=== PATIENT | female | born 1970 | race Caucasian/White ===

== ENCOUNTER 2017-03-06 20:02 | Emergency (ER) | payer MEDICAID ==
[2017-03-06] MEDS ORDERED: IPRATROPIUM/ALBUTEROL (0.5MG/3MG) NEB INH ONE (20:16)
--- NOTE | 2017-03-06 20:20 | Emergency Department Record ---
History of Present Illness - General Chief Complaint: Cough Stated Complaint: COUGH/BODY ACHES Time Seen by Provider: 03/06/17 20:04 Source: Patient Mode of Arrival: Ambulatory Limitations: No limitations - History of Present Illness Initial Comments: 46 yo female presents to ED with a CC of cough and congestion symptoms for the past 2 weeks. Patient reports that she took 5-days of Levaquin at that time without significant improvement. Patient was seen in [facility] several days ago, given duoneb, prednisone, and tessalon perles without improvement. Patient does report a history of pneumonia previously and is a current smoker. Patient also reports history of DM and RA that she does not currently take immunosuppressant medications for. MD Complaint: Cough Onset/Timin -: Week(s) Severity: Moderate Quality: Aching Consistency: Constant Improves With: Nothing Worsens With: Nothing Associated Symptoms: Denies other symptoms Treatments Prior to Arrival: Antibiotics - Related Data Previous Rx's Medication Instructions Recorded Azithromycin [Zithromax] 250 mg PO DAILY #8 tablet 03/06/17 Allergies Allergy/AdvReac Type Severity Reaction Status Date / Time bupropion HCl [From Zyban] Allergy Severe HIVES Verified 03/06/17 20:13 morphine Allergy Severe ALTERED Verified 03/06/17 20:13 MENTAL STATUS Penicillins Allergy Severe HIVES Verified 03/06/17 20:13 Sulfa (Sulfonamide Allergy Severe ANAPHYLAXIS Verified 03/06/17 20:13 Antibiotics) codeine Allergy Mild itch and Verified 03/06/17 20:13 stomach issues Travel Screening - Travel/Exposure Within Last 30 Days Have you traveled within the last 30 days?: No - Travel/Exposure Within Last Year Have you traveled outside the [place] in the last year?: No - Additonal Travel Details Have you been exposed to anyone with a communicable illness?: No Review of Systems Constitutional: Denies: Chills, Fever, Malaise, Night sweats Eyes: Denies: Eye discharge, Eye pain ENT: Reports: Congestion. Denies: Ear pain, Epistaxis Respiratory: Reports: Cough, Dyspnea Cardiovascular: Denies: Chest pain, Dyspnea on exertion Endocrine: Denies: Fatigue, Heat or cold intolerance Gastrointestinal: Denies: Abdominal pain, Nausea, Vomiting Genitourinary: Denies: Incontinence, Retention Musculoskeletal: Denies: Arthralgia, Back pain, Gout, Joint swelling Skin: Denies: Bruising, Change in color Neurological: Denies: Abnormal gait, Confusion, Headache, Seizure Psychiatric: Denies: Anxiety Hematological/Lymphatic: Denies: Anemia, Blood Clots Past Medical History - SOCIAL HISTORY Smoking Status: Current every day smoker Alcohol Use: None Drug Use: None - RESPIRATORY Hx Respiratory Disorders: No - CARDIOVASCULAR Hx Cardio Disorders: Yes Hx Deep Vein Thrombosis: Yes - NEURO Hx Neuro Disorders: No - GI Hx GI Disorders: No - Hx Genitourinary Disorders: No - ENDOCRINE Hx Endocrine Disorders: Yes Hx Diabetes: Yes - MUSCULOSKELETAL Hx Musculoskeletal Disorders: Yes Hx Arthritis: Yes (RA) Comment:: DJD - PSYCH Hx Psych Problems: Yes Hx Depression: Yes - HEMATOLOGY/ONCOLOGY Hx Hematology/Oncology Disorders: No Family Medical History Any Significant Family History?: Yes Hx Heart Disease: Father Hx Stroke: Father Physical Exam - General General Appearance: Alert, Oriented x3, Cooperative, No acute distress Limitations: No limitations - Head Head exam: Atraumatic, Normocephalic, Normal inspection Head exam detail: negative: Abrasion, Contusion, Rubi's sign, General tenderness, Hematoma, Laceration - Eye Eye exam: Normal appearance. negative: Conjunctival injection, Periorbital swelling, Periorbital tenderness, Scleral icterus - ENT Ear exam: negative: Auricular hematoma, Auricular trauma Nasal Exam: negative: Active bleeding, Discharge, Dried blood, Foreign body Mouth exam: negative: Drooling, Laceration, Tongue elevation - Neck Neck exam: Normal inspection. negative: Meningismus, Tenderness - Respiratory Respiratory exam: Normal lung sounds bilaterally. negative: Rales, Respiratory distress, Rhonchi, Stridor - Cardiovascular Cardiovascular Exam: Regular rate, Normal rhythm, Normal heart sounds - GI/Abdominal GI/Abdominal exam: Soft. negative: Rebound, Rigid, Tenderness - Rectal Rectal exam: Deferred - exam: Deferred - Extremities Extremities exam: Normal inspection. negative: Calf tenderness, Pedal edema, Tenderness - Back Back exam: Denies: CVA tenderness (R), CVA tenderness (L) - Neurological Neurological exam: Alert, Normal gait, Oriented X3 - Psychiatric Psychiatric exam: Normal affect, Normal mood - Skin Skin exam: Normal color. negative: Abrasion Type of lesion: negative: abrasion Course Vital Signs 03/06/17 20:03 Temperature 97.9 F Pulse Rate 84 Respiratory 18 Rate Blood Pressure 112/84 Pulse Ox 98 - Reevaluation(s) Reevaluation #1: 03/06/17 20:31 EKG: NSR 72 Normal axis, normal intervals No acute ST-T wave changes. Influenza negative Reevaluation #2: 03/06/17 21:13 CXR: No acute process Patient was updated on all results, reports improvement in her symptoms and appears stable for discharge on Zithromax for probable bronchitis. Patient was instructed to continue Prednisone until gone, continue Tessalon as directed. Disposition Disposition: Discharge Clinical Impression: Bronchitis Disposition: Home, Self-Care Condition: (2) Stable Instructions: Acute Bronchitis (ED) Additional Instructions: Return to ED if your symptoms worsen or if you have any concerns. Zithromax as directed. Follow-up with your family doctor in 3-5 days as directed. Prescriptions: Azithromycin [Zithromax] 250 mg PO DAILY #8 tablet Forms: Patient Portal Access Time of Disposition: 21:17 Quality - Quality Measures Quality Measures: N/A - Blood Pressure Screening Does Patient Have Any of the Following: No Blood Pressure Classification: Pre-Hypertensive BP Reading Systolic Measurement: 112 Diastolic Measurement: 84 Screening for High Blood Pressure: < Pre-Hypertensive BP, F/U Documented > [ G8950] Pre-Hypertensive Follow-up Interventions: Referral to alternative/primary care provider.
[2017-03-06 20:28] LABS: INFLUENZA A NEGATIVE (NEGATIVE); INFLUENZA B NEGATIVE (NEGATIVE)
--- NOTE | 2017-03-08 15:53 | RADIOLOGY REPORT ---
DATE: 03/06/2017 at 2056. EXAM: CHEST, TWO VIEWS. HISTORY: Cough and chest pain. TECHNIQUE: Upright PA and lateral views of the chest. COMPARISON: Two-view chest radiographic examination dated 03/02/2017. FINDINGS: The heart is normal in size, and the pulmonary vasculature is nondilated. The lungs and pleural spaces remain clear. No displaced rib fracture. Degenerative changes of the visualized spine and shoulder girdle is redemonstrated. Surgical anchors again noted in the proximal humeri. IMPRESSION: NO EVIDENCE OF ACUTE CARDIOPULMONARY DISEASE, UNCHANGED SINCE 03/02/2017. JOB NUMBER: [id number] [facility]
== END 2017-03-06 21:22 | disposition home or self-care (01) ==
LOC: ER 20:02
DX: J20.9 Acute bronchitis, unspecified (principal); R07.9 Chest pain, unspecified; F17.210 Nicotine dependence, cigarettes, uncomplicated; E11.9 Type 2 diabetes mellitus without complications; M06.9 Rheumatoid arthritis, unspecified
CPT/HCPCS: 71020; 87400; 93005; 93010; 94640; 99284

== ENCOUNTER 2017-07-22 13:39 | Emergency (ER) | payer MEDICAID ==
--- NOTE | 2017-07-22 13:55 | Emergency Department Record ---
History of Present Illness - General Chief Complaint: Chest Pain Stated Complaint: CHEST PAIN Time Seen by Provider: 07/22/17 13:51 Source: Patient Mode of Arrival: Ambulatory Limitations: No limitations - History of Present Illness Initial Comments: 47 yo female presents with chest pain that is both sharp and squeezing in the mid left chest. It radiates to the back. It started at about 8 pm last night. The pain is a squeezing tightness that becomes sharp. The pain intensity comes and goes. She feels nauseated with the pain. She reports she did have a heart cath about 4 years ago at [facility]. She also had a Left UE DVT last december that was treated with Xarelto. She had had L shoulder surgery the preceding August. No leg pain or edema. No calf pain. No upper extremity pain or swelling. She has DM, HTN, and is a smoker. She has a strong family history of CAD, aneurysms. She is one of 16 children. Father at age 51 with AMI, brother at 48 yo thought to be a dissection. She has at least 2 siblings with aneurysms. MD Complaint: Chest pain -: Days(s) (1) Onset: Other Pain Location: Left chest Pain Radiation: Back Severity: Moderate Quality: Sharp, Tightness Consistency: Intermittent Improves With: Nothing Worsens With: Nothing Context: Other Anginal Symptoms: Diaphoresis, Dyspnea, Nausea Other Symptoms: Other Treatments Prior to Arrival: None - Related Data Home Medications Medication Instructions Recorded Confirmed Last Taken Dapagliflozin Propanediol [Farxiga] 10 g PO DAILY 07/22/17 07/22/17 Unknown Oxycodone HCl [Oxycodone HCl] 20 mg PO DAILY 07/22/17 07/22/17 Unknown Allergies Allergy/AdvReac Type Severity Reaction Status Date / Time bupropion HCl [From Zyban] Allergy Severe HIVES Unverified 06/29/17 09:09 morphine Allergy Severe ALTERED Unverified 06/29/17 09:09 MENTAL STATUS Penicillins Allergy Severe HIVES Unverified 06/29/17 09:09 Sulfa (Sulfonamide Allergy Severe ANAPHYLAXIS Unverified 06/29/17 09:09 Antibiotics) codeine Allergy Mild itch and Unverified 06/29/17 09:09 stomach issues sulfamethoxazole Allergy Unverified 06/29/17 09:09 [From Bactrim] trimethoprim [From Bactrim] Allergy Unverified 06/29/17 09:09 Review of Systems Constitutional: Denies: Chills, Fever, Malaise, Weakness Eyes: Denies: Eye discharge, Eye pain ENT: Denies: Congestion, Dental pain, Throat pain Respiratory: Reports: Dyspnea. Denies: Cough, Hemoptysis, Stridor, Wheezes Cardiovascular: Reports: Chest pain. Denies: Dyspnea on exertion, Edema, Palpitations, Syncope Endocrine: Reports: Fatigue (one month) Gastrointestinal: Reports: Nausea. Denies: Abdominal pain, Diarrhea, Vomiting Genitourinary: Denies: Dysuria, Urgency Musculoskeletal: Reports: Back pain. Denies: Arthralgia, Joint swelling, Myalgia, Neck pain Skin: Denies: Bruising, Change in color, Rash Neurological: Denies: Confusion, Headache Psychiatric: Denies: Anxiety, Depression Hematological/Lymphatic: Denies: Blood Clots, Easy bleeding, Easy bruising, Swollen glands Past Medical History - SOCIAL HISTORY Smoking Status: Current every day smoker Drug Use: None - RESPIRATORY Hx Respiratory Disorders: No - CARDIOVASCULAR Hx Cardio Disorders: Yes Hx Deep Vein Thrombosis: Yes - NEURO Hx Neuro Disorders: No - GI Hx GI Disorders: No - Hx Genitourinary Disorders: No - ENDOCRINE Hx Endocrine Disorders: Yes Hx Diabetes: Yes - MUSCULOSKELETAL Hx Musculoskeletal Disorders: Yes Hx Arthritis: Yes (RA) Comment:: DJD - PSYCH Hx Psych Problems: Yes Hx Depression: Yes - HEMATOLOGY/ONCOLOGY Hx Hematology/Oncology Disorders: No Family Medical History Hx Heart Disease: Father Hx Stroke: Father Physical Exam - General General Appearance: Alert, Oriented x3, Cooperative, No acute distress Limitations: No limitations - Head Head exam: Normal inspection - Eye Eye exam: Normal appearance, PERRL. negative: Conjunctival injection - ENT ENT exam: Normal exam, Mucous membranes moist, Normal orophraynx Ear exam: Normal external inspection Nasal Exam: Normal inspection Mouth exam: Normal external inspection Teeth exam: Normal inspection - Neck Neck exam: Normal inspection, Full ROM. negative: Tenderness - Respiratory Respiratory exam: Normal lung sounds bilaterally. negative: Accessory muscle use, Chest wall tenderness, Decreased breath sounds, Respiratory distress, Rhonchi, Stridor, Wheezes - Cardiovascular Cardiovascular Exam: Regular rate, Normal rhythm, Normal heart sounds Peripheral Pulses: 2+: Radial (R), Radial (L) - GI/Abdominal GI/Abdominal exam: Soft. negative: Distended, Guarding, Rebound, Rigid, Tenderness - Rectal Rectal exam: Deferred - exam: Deferred - Extremities Extremities exam: Normal inspection, Full ROM, Normal capillary refill. negative: Pedal edema, Tenderness - Back Back exam: Reports: Normal inspection, Full ROM. Denies: Muscle spasm, Rash noted, Tenderness - Neurological Neurological exam: Alert, Normal gait, Oriented X3, Reflexes normal - Psychiatric Psychiatric exam: Normal affect, Normal mood. negative: Agitated, Anxious - Skin Skin exam: Dry, Intact, Normal color, Warm Course - Reevaluation(s) Reevaluation #1: EKG 13:51 NSR, rate 83, intervals normal, axis normal, ST normal. No changes from the previous two EKG's on 03/06/17 and 07/01/15 07/22/17 13:54 07/22/17 13:56 Vitals reviewed No acute changes. No tachycardia or hypoxia 07/22/17 14:36 No acute changes on the CBC or CMP except glucose of 232 07/22/17 14:53 The Troponin is negative with onset of pain at 8pm past night. 07/22/17 15:24 The CTA of the chest was negative for PE, dissection, or aneurysm. 1.5cm R Adrenal Nodule noted. The patient was informed of the need to follow up the nodule with her PCP in the next month. 07/22/17 15:25 The patient declined any nitro.l 07/22/17 15:38 I MARY Pena. Given her significant risk profile she will be transfer to [facility] for further monitoring and work up. He called for a direct admission. Medical Decision Making - Lab Data Result diagrams: 07/22/17 14:05 07/22/17 14:05 Disposition Disposition: Transfer Clinical Impression: Chest pain Disposition: Acute Care Hospital Transfer Transfer To: [facility] Reason For Transfer: Chest pain, cardiology consult Accepting Physician: Becky Time Discussed w/Accepting Physician: 15:40 Condition: (2) Stable Additional Instructions: You have a small 1.5cm nodule in your R adrenal nodule that you will have to discuss with your doctor for follow up Forms: Patient Portal Access Time of Disposition: 15:40 Quality - Quality Measures Quality Measures: N/A - Blood Pressure Screening Does Patient Have Any of the Following: No Blood Pressure Classification: Pre-Hypertensive BP Reading Systolic Measurement: 125 Diastolic Measurement: 80 Screening for High Blood Pressure: < Pre-Hypertensive BP, F/U Documented > [ G8950] Pre-Hypertensive Follow-up Interventions: Referral to alternative/primary care provider.
[2017-07-22] MEDS ORDERED: ONDANSETRON HCL IV 4 MG/2 ML VIAL IVP ONE (14:07)
[2017-07-22] MEDS ORDERED: FENTANYL PF 100MCG/2ML VIAL IVP ONE ×2 (14:08→15:29)
[2017-07-22 14:15] LABS: BASO % 0.4 % (0-6); EOS % 1.7 % (0-6); GRAN % 48.4 % (47-80); HEMATOCRIT 43.3 % (35.0-47.0); LYMPH % 41.6 % (16-45); MEAN CELL VOLUME 99.8 fl (81-97); MEAN CORPUSCULAR HEMOGLOBIN 34.6 pg (27-33); MEAN CORPUSCULAR HGB CONC 34.6 g/dl (32-36); MEAN PLATELET VOLUME 10.2 fl (7.4-10.4); MONO % 7.9 % (0-9); PLATELET COUNT 257 K/uL (130-400); RED BLOOD COUNT 4.34 M/uL (3.80-5.40); RED CELL DISTRIBUTION WIDTH 11.8 % (11.5-14.5); WHITE BLOOD COUNT W/O DIFF 7.8 K/uL (4.2-12.2)
[2017-07-22 14:28] LABS: BLOOD UREA NITROGEN 16 mg/dL (6-20); INR 0.9; PROTHROMBIN TIME (PATIENT) 10.1 SECONDS (9.5-12.1)
[2017-07-22 14:29] LABS: CREATININE 0.6 mg/dL (0.5-0.9); EST GLOMERULAR FILTRATION RATE > 60 mL/min; TOTAL PROTEIN 6.9 g/dL (6.6-8.7)
[2017-07-22 14:31] LABS: GLUCOSE,RANDOM 232 mg/dL (74-109)
[2017-07-22 14:34] LABS: ALB/GLOB RATIO 1.7 (1.1-1.8); ALBUMIN 4.3 g/dL (4.0-5.0); ALKALINE PHOSPHATASE 88 U/L (35-104); ALT/SGPT 20 U/L (<33); AST/SGOT 18 U/L (10.0-35.0); CREATINE PHOSPHOKINASE 65 U/L (26-192)
[2017-07-22 14:36] LABS: CKMB 2.1 ng/mL (<3.77)
[2017-07-22] MEDS ORDERED: NITROGLYCERIN 0.4MG SL TABLET #25 BTL SL ONE (15:36)
[2017-07-22] MEDS ORDERED: ASPIRIN 81 MG CHEWABLE TABLET PO ONE (15:37)
--- NOTE | 2017-07-23 18:04 | CT ANGIOGRAM REPORT ---
EXAM: CT ANGIOGRAM CHEST CTA w contrast HISTORY: CHEST PAIN. TECHNIQUE: CTA of the chest was performed after intravenous administration of 80 mL of Omnipaque-350 contrast material. Sagittal, coronal, and MIP images were performed on an independent workstation. COMPARISON: None. FINDINGS: There is no mass or filling defect to suggest pulmonary embolism. The heart and pericardium appears normal. Mediastinal vasculature enhances normally. The lung esquivel are clear. No infiltrate or pleural effusion. The visualized superior abdominal structures demonstrate a right adrenal nodule measuring 1.5 cm. IMPRESSION: 1. NO CTA FINDING SUGGESTIVE OF PULMONARY EMBOLISM. 2. A 1.5 CM RIGHT ADRENAL NODULE. JOB NUMBER: [id number] [facility]
== END 2017-07-22 16:45 | disposition short-term general hospital (02) ==
LOC: ER 13:39
DX: R07.89 Other chest pain (principal); R61 Generalized hyperhidrosis; R06.00 Dyspnea, unspecified; R11.0 Nausea; I10 Essential (primary) hypertension; F17.210 Nicotine dependence, cigarettes, uncomplicated; E11.9 Type 2 diabetes mellitus without complications; Z79.4 Long term (current) use of insulin
CPT/HCPCS: 99285 ×2; 96376; 96374; 96375; 82550; 85025; 85730; 85610; 82553; 80053; 84484; 71275; 93005; 93010; Q9967; J2405; J3010

== ENCOUNTER 2019-02-08 21:45 | Emergency (ER) | payer MEDICAID, BC ==
[2019-02-08] MEDS ORDERED: HYDROCODONE/APAP 10/325 TABLET PO ONE (22:05)
--- NOTE | 2019-02-08 22:13 | Emergency Department Record ---
History of Present Illness - General Chief complaint: Pain Stated complaint: rt knee pain Time Seen by Provider: 02/08/19 22:03 Source: Patient, Family Mode of Arrival: Ambulatory Limitations: No limitations - History of Present Illness Initial comments: 48 yo female presents about 26 hours after a fall and injury to her right knee. She slipped on concrete steps. She landed on the right knee. She has anterior knee pain and an abrasion. No other injuries or pain. She is able to bear weight but not without pain. No prior knee surgery. No blood thinners. MD Complaint: Extremity pain, Joint pain -: Days(s) (1) Location: Right History of Same: No -: Yes Arthralgia Radiation: Proximal Quality: Aching Consistency: Constant Improves with: Immobilization Worsens with: Palpation, Walking, Weight bearing Associated Symptoms: Denies other symptoms - Related Data Previous Rx's Medication Instructions Recorded Hydrocodone/APAP 5/325Mg [[place] 1 each PO Q6H #10 tab 02/08/19 5Mg/325Mg] Allergies Allergy/AdvReac Type Severity Reaction Status Date / Time bupropion HCl [From Zyban] Allergy Severe HIVES Verified 02/08/19 22:03 morphine Allergy Severe ALTERED Verified 02/08/19 22:03 MENTAL STATUS Penicillins Allergy Severe HIVES Verified 02/08/19 22:03 Sulfa (Sulfonamide Allergy Severe ANAPHYLAXIS Verified 02/08/19 22:03 Antibiotics) codeine Allergy Mild itch and Verified 02/08/19 22:03 stomach issues sulfamethoxazole Allergy ANAPHYLAXIS Verified 02/08/19 22:03 [From Bactrim] trimethoprim [From Bactrim] Allergy ANAPHYLAXIS Verified 02/08/19 22:03 Review of Systems Constitutional: Denies: Chills, Fever, Malaise, Weakness Eyes: Denies: Eye discharge ENT: Denies: Congestion, Throat pain Respiratory: Denies: Cough Cardiovascular: Denies: Chest pain, Palpitations, Syncope Endocrine: Denies: Fatigue Gastrointestinal: Denies: Abdominal pain, Diarrhea, Nausea, Vomiting Genitourinary: Denies: Dysuria, Urgency Musculoskeletal: Reports: As per HPI, Arthralgia Skin: Reports: Other (abrasion). Denies: Bruising, Change in color, Pruritus Neurological: Denies: Abnormal gait, Headache, Numbness, Tingling, Weakness Psychiatric: Denies: Anxiety Hematological/Lymphatic: Denies: Easy bleeding, Easy bruising Past Medical History - SOCIAL HISTORY Smoking Status: Current every day smoker Drug Use: None - RESPIRATORY Hx Respiratory Disorders: No - CARDIOVASCULAR Hx Cardio Disorders: Yes Hx Deep Vein Thrombosis: Yes - NEURO Hx Neuro Disorders: No - GI Hx GI Disorders: No - Hx Genitourinary Disorders: No - ENDOCRINE Hx Endocrine Disorders: Yes Hx Diabetes: Yes - MUSCULOSKELETAL Hx Musculoskeletal Disorders: Yes Hx Arthritis: Yes (RA) Comment:: DJD - PSYCH Hx Psych Problems: Yes Hx Depression: Yes - HEMATOLOGY/ONCOLOGY Hx Hematology/Oncology Disorders: No Family Medical History Hx Heart Disease: Father Hx Stroke: Father Physical Exam - General General Appearance: Alert, Oriented x3, Cooperative, No acute distress Limitations: No limitations - Head Head exam: Atraumatic, Normal inspection - Eye Eye exam: Normal appearance, PERRL. negative: Conjunctival injection, Scleral icterus - ENT ENT exam: Normal exam, Mucous membranes moist Ear exam: Normal external inspection Nasal Exam: Normal inspection Mouth exam: Normal external inspection - Neck Neck exam: Normal inspection - Rectal Rectal exam: Deferred - exam: Deferred - Extremities Extremities exam: Full ROM, Joint swelling, Normal capillary refill, Tenderness. negative: Normal inspection (abrasion distal right anterior knee), Calf tenderness, Pedal edema Image of Full Body: 1 - small quarter size abrasion, tender minimally swolle patella, mild medial joint line tenderness, stable joint, she is able to straight leg raise with heel off the bed - Back Back exam: Reports: Full ROM. Denies: CVA tenderness (R), CVA tenderness (L) - Neurological Neurological exam: Alert, Oriented X3 - Psychiatric Psychiatric exam: Normal affect, Normal mood - Skin Skin exam: Abrasion Course - Reevaluation(s) Reevaluation #1: 02/08/19 22:38 The patient is up to date on her tetanus The preliminary XR was read as negative for acute process The patient was informed this is a prelim read and final read tomorrow She can not use crutches due to bilateral shoulder surgery She will not be able to ambulate at work the next 2-3 days and will be written off The patient was prescribed a controlled substance. The prescription does not exceed three days. MAPS was reviewed at the time of the prescripts The topics of abuse, addiction, over dose, dangers of multiple medications, disposal, and illegal distribution were discussed with the patient. Disposition Disposition: Discharge Clinical Impression: Abrasion, knee Qualifiers: Encounter type: initial encounter Laterality: right Qualified Code(s): S80.211A - Abrasion, right knee, initial encounter Right knee sprain Qualifiers: Encounter type: initial encounter Involved ligament of knee: unspecified ligament Qualified Code(s): S83.91XA - Sprain of unspecified site of right knee, initial encounter Disposition: Home, Self-Care Condition: (1) Good Instructions: Knee Sprain (ED) Additional Instructions: Use the immobilizer for support and comfort Ice the knee every 4 hours to minimize swelling and inflammation Call your doctor tomorrow for a recheck later this week You may need further testing if the pain continues to rule out ligament, cartilage, tendon injury or bone injury not visible on XRay You had radiology studies done in the ED that will be further reviewed by the radiologist. Todays results were a preliminary result only. You will be contacted if the radiologist read is different from the Emergency Department report Prescriptions: Hydrocodone/APAP 5/325Mg [[place] 5Mg/325Mg] 1 each PO Q6H #10 tab Forms: Patient Portal Access Time of Disposition: 22:38 Quality - Quality Measures Quality Measures: N/A - Blood Pressure Screening Does Patient Have Any of the Following: No Blood Pressure Classification: Pre-Hypertensive BP Reading Systolic Measurement: 127 Diastolic Measurement: 82 Screening for High Blood Pressure: < Pre-Hypertensive BP, F/U Documented > [G8950] Pre-Hypertensive Follow-up Interventions: Referral to alternative/primary care provider.
--- NOTE | 2019-02-10 07:40 | RADIOLOGY REPORT ---
EXAM: RIGHT KNEE, FOUR VIEWS HISTORY: ANTERIOR RIGHT KNEE PAIN ONE DAY POST FALL. TECHNIQUE: Four views of the right knee were obtained. Comparison: None. Encounter: Initial. FINDINGS: There is normal bone mineralization. No fracture, dislocation, or destructive bone lesion is seen. There is a small focus of sclerosis within the lateral proximal aspect of the tibia measuring approximately 5 mm. This is nonspecific, but likely a bone island. Early marginal spurring of the medial and patellofemoral compartments is suggested. The articular relations are otherwise maintained. No joint effusion is identified. Minor prepatellar soft tissue swelling questioned. IMPRESSION: 1. NO ACUTE FRACTURE NOR DISLOCATION. 2. MILD PREPATELLAR SOFT TISSUE SWELLING. 3. EARLY MARGINAL SPURRING INVOLVING THE MEDIAL AND PATELLOFEMORAL COMPARTMENTS. JOB [facility]BER: [id number] [facility]
== END 2019-02-08 22:55 | disposition home or self-care (01) ==
LOC: ER 21:45
DX: S83.91XA Sprain of unspecified site of right knee, initial encounter (principal); S80.211A Abrasion, right knee, initial encounter; W01.198A Fall on same level from slipping, tripping and stumbling with subsequent striking against other object, initial encounter; Y92.009 Unspecified place in unspecified non-institutional (private) residence as the place of occurrence of the external cause
CPT/HCPCS: 99283

== ENCOUNTER 2019-04-14 19:30 | Emergency (ER) | payer MEDICAID, BC ==
--- NOTE | 2019-04-14 19:53 | Emergency Department Record ---
History of Present Illness - General Chief Complaint: Headache Migraine Stated Complaint: HARRIS,DIZZY Time Seen by Provider: 04/14/19 19:45 Source: Patient Mode of Arrival: Ambulatory Limitations: No limitations - History of Present Illness Initial Comments: The patient is here due to multiple episodes of first left leg weakness, then R sided sharp stabbing HARRIS which lasts about 2 minutes and then resolves. She had an episode 2 hours ago and one last evening. The patient states she could feel the episode coming on 2 hours ago but it did resolve completely. She also had one last month but did not seek care for it. The patient also denies any CP, SOB, NEHA, or visual changes. Presently she feels completely 100% back to normal. She does have a hx of DM, HTN, DVT, and tobacco use. MD Complaint: Headache Onset/Timin -: Hour(s) Onset Description: Sudden Severity: Mild Severity scale (1-10): 2 Quality: Aching Consistency: Intermittent Improves With: Nothing Worsens With: None Treatments Prior to Arrival: None - Symptoms of Stroke Baseline State: Baseline State - Related Data Home Medications Medication Instructions Recorded Confirmed Last Taken Lorazepam 0.5 mg PO BID 04/14/19 04/14/19 Unknown Zolpidem Tartrate 1 tab PO QHS 04/14/19 04/14/19 Unknown Allergies Allergy/AdvReac Type Severity Reaction Status Date / Time bupropion HCl [From Zyban] Allergy Severe HIVES Verified 04/14/19 19:33 morphine Allergy Severe ALTERED Verified 04/14/19 19:33 MENTAL STATUS Penicillins Allergy Severe HIVES Verified 04/14/19 19:33 Sulfa (Sulfonamide Allergy Severe ANAPHYLAXIS Verified 04/14/19 19:33 Antibiotics) codeine Allergy Mild itch and Verified 04/14/19 19:33 stomach issues sulfamethoxazole Allergy ANAPHYLAXIS Verified 04/14/19 19:33 [From Bactrim] trimethoprim [From Bactrim] Allergy ANAPHYLAXIS Verified 04/14/19 19:33 Travel Screening - Travel/Exposure Within Last 30 Days Have you traveled within the last 30 days?: No - Travel/Exposure Within Last Year Have you traveled outside the [place] in the last year?: No - Additonal Travel Details Have you been exposed to anyone with a communicable illness?: No - Travel Symptoms Symptom Screening: None Review of Systems Constitutional: Denies: Chills, Fever Eyes: Denies: Eye discharge ENT: Denies: Congestion Respiratory: Denies: Cough, Dyspnea Cardiovascular: Denies: Arrhythmia Endocrine: Denies: Fatigue Gastrointestinal: Denies: Abdominal pain Genitourinary: Denies: Dysuria Musculoskeletal: Denies: Arthralgia Skin: Denies: Bruising Past Medical History - SOCIAL HISTORY Smoking Status: Current every day smoker Alcohol Use: Rare Drug Use: None - RESPIRATORY Hx Respiratory Disorders: No - CARDIOVASCULAR Hx Cardio Disorders: Yes Hx Deep Vein Thrombosis: Yes Hx Hypertension: Yes - NEURO Hx Neuro Disorders: No - GI Hx GI Disorders: No - Hx Genitourinary Disorders: No - ENDOCRINE Hx Endocrine Disorders: Yes Hx Diabetes: Yes - MUSCULOSKELETAL Hx Musculoskeletal Disorders: Yes Hx Arthritis: Yes (RA) Comment:: DJD - PSYCH Hx Psych Problems: Yes Hx Anxiety: Yes Hx Depression: Yes - HEMATOLOGY/ONCOLOGY Hx Hematology/Oncology Disorders: No Family Medical History Any Significant Family History?: No Hx Heart Disease: Father Hx Stroke: Father Physical Exam - General General Appearance: Alert, Oriented x3, Cooperative, No acute distress - Head Head exam: Atraumatic, Normocephalic, Normal inspection - Eye Eye exam: Normal appearance, PERRL, EOMI - ENT Throat exam: Normal inspection. negative: Tonsillar erythema, Tonsillar exudate - Neck Neck exam: Normal inspection, Full ROM. negative: Meningismus (The neck is very supple.), Tenderness - Respiratory Respiratory exam: Normal lung sounds bilaterally. negative: Respiratory distress - Cardiovascular Cardiovascular Exam: Regular rate, Normal rhythm, Normal heart sounds - GI/Abdominal GI/Abdominal exam: Soft, Normal bowel sounds. negative: Tenderness - Extremities Extremities exam: Normal inspection, Full ROM, Normal capillary refill. negative: Tenderness - Back Back exam: Reports: Normal inspection - Neurological Neurological exam: Alert, Normal gait, Oriented X3, Other (Neg Drift and Rhomberg.). negative: Abnormal gait, Altered, Motor sensory deficit - Psychiatric Psychiatric exam: negative: Anxious Course Vital Signs 04/14/19 19:38 Temperature 98.1 F Pulse Rate 81 Respiratory 16 Rate Blood Pressure 126/94 Pulse Ox 97 - Reevaluation(s) Reevaluation #1: The patient is doing very well at this time and feels completely back to normal. I did discuss the need for further treatment including a cardiac echo, MRI and MRA to make sure there is no aneurysm or AVM causing these symptoms. I also feel that she does need inpatient treatment for the workup. Unfortunately we are not able to perform those tests here tonight or tomorrow so I did recommend transfer to another hospital. The patient would like to go to [facility]. We did contact them and due to a nursing shortage they cannot accept her tonight. I then did offer to admit the patient to the hospital here for transfer to [facility] tomorrow but the patient did decide to go home. I then did explain that by NOT being admitted she does accept the risks of leaving which include going home and having an GA, stroke, becoming disabled and even dying. The patient does understand the risks and accepts the risks of leaving. She clearly has proper decision making capacity and understands the risks of leaving. I then did discuss the need to contact her PCP tomorrow and she can always return to the ER for any worsening symptoms. 04/14/19 21:32 Medical Decision Making - Data Complexity MDM Data: Labs Ordered and/or Reviewed, X-Ray Ordered and/or Reviewed, EKG Ordered and/or Reviewed - Lab Data Result diagrams: 04/14/19 19:45 04/14/19 19:45 - EKG Data -: EKG Interpreted by Me EKG: No Acute Changes, Normal EKG - Radiology Data Radiology results: Report reviewed (CXR: Neg Head CT: neg for acute changes.) Disposition Disposition: Discharge Clinical Impression: TIA (transient ischemic attack) Disposition: Against Medical Advice Condition: (2) Stable Instructions: Transient Ischemic Attack (ED) Additional Instructions: Please continue your regular medicines and please see your doctor tomorrow for recheck and to have the appropriate tests ordered. Please return to the ER for any worsening symptoms. Forms: Patient Portal Access Time of Disposition: 21:38 Quality - Quality Measures Quality Measures: N/A - Blood Pressure Screening View Details: Yes Does Patient Have Any of the Following: Active Dx of HTN Blood Pressure Classification: Hypertensive Reading Systolic Measurement: 126 Diastolic Measurement: 94 Screening for High Blood Pressure: Patient Exclusion, Hx of HTN [[id number]]
[2019-04-14 20:02] LABS: ABSOLUTE NEUTROPHIL COUNT 3.49; BASO % 0.5 % (0-6); EOS % 1.4 % (0-6); GRAN % 52.4 % (47-80); HEMATOCRIT 45.1 % (35.0-47.0); HEMOGLOBIN 15.3 gm/dl (11.6-16.0); LYMPH % 39.7 % (16-45); MEAN CELL VOLUME 101.8 fl (81-97); MEAN CORPUSCULAR HEMOGLOBIN 34.5 pg (27-33); MEAN CORPUSCULAR HGB CONC 33.9 g/dl (32-36); MEAN PLATELET VOLUME 10.6 fl (7.4-10.4); PLATELET COUNT 228 K/uL (130-400); RED BLOOD COUNT 4.43 M/uL (3.80-5.40); RED CELL DISTRIBUTION WIDTH 12.6 % (11.5-14.5); WHITE BLOOD COUNT W/O DIFF 6.7 K/uL (4.2-12.2)
[2019-04-14 20:13] LABS: INR 0.9; PARTIAL THROMBOPLASTIN TIME 25.6 SECONDS (24.5-39.1); PROTHROMBIN TIME (PATIENT) 9.7 SECONDS (9.5-12.1)
[2019-04-14 20:16] LABS: BLOOD UREA NITROGEN 11 mg/dL (6-20); CREATININE 0.6 mg/dL (0.5-0.9); EST GLOMERULAR FILTRATION RATE > 60 mL/min; TOTAL PROTEIN 6.7 g/dL (6.6-8.7)
[2019-04-14 20:18] LABS: GLUCOSE,RANDOM 267 mg/dL (74-109)
[2019-04-14 20:21] LABS: ALB/GLOB RATIO 1.8 (1.1-1.8); ALBUMIN 4.3 g/dL (4.0-5.0); ALKALINE PHOSPHATASE 92 U/L (35-104); ALT/SGPT 17 U/L (<33); AST/SGOT 16 U/L (10.0-35.0)
[2019-04-14 20:31] LABS: THYROID STIMULATING HORMONE 0.64 uIU/mL (0.270-4.20)
--- NOTE | 2019-04-15 11:28 | CT SCAN REPORT ---
EXAMINATION: HEAD WO CONTRAST EXAM DATE: 04/14/2019 8:37 PM TECHNIQUE: Noncontrast axial images were obtained to the brain. INDICATION: Right-sided headache COMPARISON: None. ENCOUNTER: Not applicable HAND DOMINANCE: Unknown FINDINGS: The brain parenchyma is unremarkable for age. No loss of chino-white matter differentiation or sulcal effacement to indicate acute infarction. No evidence of intracranial mass. The ventricles, sulci, and subarachnoid spaces are unremarkable for age. The basal cisterns are paten t and there is no midline shift or herniation. No intra-axial or extra-axial fluid collection. No evidence of intracranial hemorrhage. The paranasal sinuses, mastoid air cells, and orbits are unremarkable other than mild paranasal sinu s mucosal thickening. No air-fluid levels. The calvarium is intact. IMPRESSION: 1. Unremarkable exam. No CT evidence of intracranial hemorrhage or acute intracranial abnormality. Dictated by: BRIDGETTE MONTANEZ MD on 04/14/2019 8:38 PM. .
--- NOTE | 2019-04-15 16:52 | RADIOLOGY REPORT ---
EXAMINATION: Two View Chest Radiographs EXAM DATE: 04/14/2019 8:37 PM TECHNIQUE: Frontal and lateral views INDICATION: cough COMPARISON: Chest CT 07/22/2017 ENCOUNTER: Not applicable FINDINGS: The heart, mediastinum, and pulmonary vasculature are normal. No lung consolidation or pleural effu sions are present. IMPRESSION: No acute cardiopulmonary disease is present. Dictated by: Eliseo Almaraz MD on 04/14/2019 8:49 PM. .
== END 2019-04-14 21:41 | disposition left against medical advice (07) ==
LOC: ER 19:30
DX: G45.9 Transient cerebral ischemic attack, unspecified (principal); R51 Headache; I10 Essential (primary) hypertension; E11.9 Type 2 diabetes mellitus without complications; F17.210 Nicotine dependence, cigarettes, uncomplicated
CPT/HCPCS: 70450; 71046; 80053; 84443; 85025; 85610; 85730; 93005; 93010; 99285